=== PATIENT | female | born 1960 | race Two or more races ===

== ENCOUNTER 2018-07-10 12:16 | Inpatient (IN) | payer OTHER ==
[2018-07-10 12:58] VITALS: BMI 26.6
--- NOTE | 2018-07-10 17:54 | HP ---
CIWA Score Nausea/Vomitin Muscle Tremors: 4-Moderate,w/Arms Extend Anxiety: 4-Mod. Anxious/Guarded Agitation: 4-Moderately Restless Paroxysmal Sweats: 3 Orientation: 1-Uncertain about Date Tacttile Disturbances: 2-Mild Itch/Numbness/Burn (both and and feet) Auditory Disturbances: 0-None Visual Disturbances: 0-None Headache: 0-None Present CIWA-Ar Total Score: 21 - Admission Criteria OASAS Guidelines: Admission for Medically Managed Detox: Requires at least one of the followin. CIWA greater than 12 2. Seizures within the past 24 hours 3. Delirium tremens within the past 24 hours 4. Hallucinations within the past 24 hours 5. Acute intervention needed for co occurring medical disorder 6. Acute intervention needed for co occurring psychiatric disorder 7. Severe withdrawal that cannot be handled at a lower level of care (continued vomiting, continued diarrhea, abnormal vital signs) requiring intravenous medication and/or fluids 8. Patient presents the following: CIWA greater than 12 Admission Criteria Met: Admission criteria met Admission ROS S - [facility] Chief Complaint: " I am withdrawing really bad" Allergies/Adverse Reactions: Allergies Allergy/AdvReac Type Severity Reaction Status Date / Time No Known Allergies Allergy Verified 07/10/18 16:33 History of Present Illness: 57 yo female with hx of alcohol dependence is here is here seeking detox. Reports prior detox treatment but does not recall the last time or facility in which she completed detox. Patient seen at [facility] yesterday d/t severe alcohol intoxication. As per patient reports that her drinking has gotten worse , wakes up from her sleep to drink d/t tremors and is currently drinking one liter of liquor per day. PMHX: Seizure d/o, HTN, GERD, bipolar, anxiety and depression. Last seizure Summer 2017. Longest period of sobriety one year. Reports hx of frequent alcohol related blackout, last episode yesterday. Exam Limitations: No Limitations - Ebola screening Have you traveled outside of the country in the last 21 days: No Have you had contact with anyone from an Ebola affected area: No Have you been sick,other than usual withdrawal symptoms: No - Review of Systems Constitutional: Chills, Diaphoresis, Loss of Appetite, Changes in sleep, Weakness EENT: reports: Dental Problems (poor dentition) Respiratory: reports: No Symptoms reported Cardiac: reports: Palpitations GI: reports: Nausea, Poor Appetite, Poor Fluid Intake : reports: Other (ocassional incontinence) Musculoskeletal: reports: Back Pain (left sciatica) Integumentary: reports: No Symptoms Reported Neuro: reports: Numbness (both hands), Weakness Endocrine: reports: Increased Thirst Hematology: reports: No Symptoms Reported Psychiatric: reports: Orientated x3, Anxious, Depressed Other Systems: Reviewed and Negative Patient History - Patient Medical History Hx Anemia: No Hx Asthma: No Hx Chronic Obstructive Pulmonary Disease (COPD): No Hx Cancer: No Hx Cardiac Disorders: No Hx Congestive Heart Failure: No Hx Hypertension: No Hx Hypercholesterolemia: No Hx Pacemaker: No HX Cerebrovascular Accident: No Hx Seizures: Yes (11/2017) Hx Dementia: No Hx Diabetes: No Hx Gastrointestinal Disorders: No Hx Liver Disease: No Hx Genitourinary Disorders: No Hx Sexually Transmitted Disorders: No Hx Renal Disease (ESRD): No Hx Thyroid Disease: No Hx Human Immunodeficiency Virus (HIV): No Hx Hepatitis C: No Hx Depression: Yes Hx Suicide Attempt: No Hx Bipolar Disorder: Yes (and borderline) Hx Schizophrenia: No - Patient Surgical History Past Surgical History: Yes Hx Neurologic Surgery: No Hx Cataract Extraction: No Hx Cardiac Surgery: No Hx Lung Surgery: No Hx Breast Surgery: No Hx Breast Biopsy: No Hx Abdominal Surgery: No Hx Appendectomy: No Hx Cholecystectomy: No Hx Genitourinary Surgery: No Hx Section: Yes (2007) Hx Orthopedic Surgery: Yes Anesthesia Reaction: No - PPD History Documented Results: Negative w/o proof Date: 02/04/16 Results: 0mm PPD to be Administered?: Yes - Reproductive History Patient is a Female of Child Bearing Age (11 -55 yrs old): No Last Menstrual Period: 10/02/07 Patient : No - Smoking Cessation Smoking history: Never smoked Have you smoked in the past 12 months: No Aproximately how many cigarettes per day: 0 Cigars Per Day: 0 Hx Chewing Tobacco Use: No Initiated information on smoking cessation: No 'Breaking Loose' booklet given: 07/10/18 - Substance & Tx. History Hx Alcohol Use: Yes Hx Substance Use: Yes Substance Use Type: Alcohol Hx Substance Use Treatment: Yes (Patient does not recall ) - Substances Abused Alcohol Route: Oral Frequency: Daily Amount used: 1 LITER VODKA Age of first use: 6 Date of Last Use: 07/08/18 Family Disease History - Family Disease History Family Disease History: Diabetes: Father (HTN,HEART DISEASE), Brother, Sister, Heart Disease: Father, Mother (HTN) Admission Physical Exam [facility] - Vital Signs Vital Signs: Vital Signs - 24 hr 07/10/18 12:54 Temperature 96.2 F L Pulse Rate 130 H Respiratory 18 Rate Blood Pressure 141/96 - Physical General Appearance: Yes: Disheveled, Severe Distress, Tremorous, Sweating, Anxious HEENTM: Yes: EOMI, Hearing grossly Normal, Normal ENT Inspection, Normocephalic , Normal Voice, [place], Other (poor dentition) Respiratory: Yes: Chest Non-Tender, Lungs Clear, Normal Breath Sounds, No Respiratory Distress, No Accessory Muscle Use Neck: Yes: Within Normal Limits Breast: Yes: Breast Exam Deferred Cardiology: Yes: Regular Rhythm, Tachycardia Abdominal: Yes: Normal Bowel Sounds, Non Tender, Flat, Soft Genitourinary: Yes: Within Normal Limits Back: Yes: Normal Inspection Musculoskeletal: Yes: full range of Motion, Gait Steady, Pelvis Stable, Back pain, Other (scoliosis) Extremities: Yes: Normal Capillary Refill, Normal Inspection, Normal Range of Motion, Non-Tender, Other (palmar erythema) 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 NML intact, Fully Oriented, Alert, Motor Strength 5/5, Depressed Affect Integumentary: Yes: Normal Color, Warm, Diaphoresis Lymphatic: Yes: Within Normal Limits - Diagnostic (1) Alcohol dependence with uncomplicated withdrawal Current Visit: Yes Status: Acute (2) Chronic back pain Current Visit: Yes Status: Chronic (3) Essential hypertension Current Visit: Yes Status: Chronic (4) Gastroesophageal reflux disease Current Visit: Yes Status: Chronic (5) Obesity Current Visit: Yes Status: Chronic (6) Seizure disorder Current Visit: Yes Status: Chronic Cleared for Admission [facility] - Detox or Rehab [facility] Level of Care: Medically Managed Detox Regimen/Protocol: Librium S Breath Alcohol Content Breath Alcohol Content: 0 Urine Pregancy Test - Result Urine Test Results: Negative- NO Line Present Urine Drug Screen - Results Drug Screen Negative: No Urine Drug Screen Results: BZO-Benzodiazepines Inpatient Rehab Admission - Rehab Decision to Admit Inpatient rehab admission?: No
[2018-07-10] MEDS ORDERED: MAG HYDROX/AL HYDROX/SIMETH 30 ML UNIT-DOSE CUP PO PRN (18:00)
[2018-07-10] MEDS ORDERED: MAGNESIUM HYDROX 2400MG/30ML ORAL SUSPENSION 30 ML CUP PO PRN (18:00)
[2018-07-10] MEDS ORDERED: guaiFENesin/D-METHORPHAN HB 10 ML UNIT-DOSE CUPS PO PRN (18:00)
[2018-07-10] MEDS ORDERED: MAGNESIUM CITRATE 300 ML BOTTLE PO PRN (18:00)
[2018-07-10] MEDS ORDERED: P-EPHED 60MG/TRIPROLIDI 2.5MG TABLET PO PRN (18:00)
[2018-07-10] MEDS ORDERED: ACETAMINOPHEN 325 MG TABLET (FP) PO PRN (18:00)
[2018-07-10] MEDS ORDERED: LOPERAMIDE HCL 2 MG CAPSULE PO PRN (18:00)
[2018-07-10] MEDS ORDERED: MENTHOL/PHENOL 1 EACH UD MM PRN (18:00)
[2018-07-10] MEDS ORDERED: chlordiazePOXIDE HCL 25 MG CAPSULE PO ONE (19:00)
[2018-07-10] MEDS ORDERED: MELATONIN 5 MG TABLETS PO PRN (22:00)
[2018-07-10] MEDS: BACLOFEN 10 MG TABLET (FP) PO SCH (22:46)
[2018-07-10] MEDS: levETIRAcetam 500 MG TABLET (FP) PO SCH (22:46)
[2018-07-10] MEDS: THIAMINE HCL 100 MG TABLET (FP) PO SCH (22:46)
[2018-07-10] MEDS: METOPROLOL TARTRATE 50 MG TABLET (FP) PO SCH (22:46)
[2018-07-10] MEDS: chlordiazePOXIDE HCL 25 MG CAPSULE PO SCH (22:47)
[2018-07-10 23:09] LABS: URINE APPEARANCE SLCLOUDY; URINE BILIRUBIN NEGATIVE (<2.0 mg/dL); URINE COLOR LTYELLOW; URINE GLUCOSE (UA) 1+ (NEGATIVE); URINE KETONE NEGATIVE (NEGATIVE); URINE LEUK ESTERASE NEGATIVE (NEGATIVE); URINE NITRITE NEGATIVE (NEGATIVE); URINE PROTEIN NEGATIVE (NEGATIVE); URINE UROBILINOGEN NEGATIVE mg/dL (0.2-1.0)
[2018-07-11] MEDS: chlordiazePOXIDE HCL 25 MG CAPSULE PO SCH ×4 (06:23→22:55)
[2018-07-11] MEDS: IBUPROFEN 400 MG TABLET (FP) PO PRN ×2 (06:25→22:56)
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
[2018-07-11] MEDS: levETIRAcetam 500 MG TABLET (FP) PO SCH ×2 (11:05→22:54)
[2018-07-11] MEDS: PRENATAL VITAMINS W/ FOLIC ACID TABLET (FP) PO SCH (11:05)
[2018-07-11] MEDS: OLANZapine 5 MG TABLET PO SCH ×2 (11:05→22:53)
[2018-07-11] MEDS: METOPROLOL TARTRATE 50 MG TABLET (FP) PO SCH ×3 (11:05→23:09)
[2018-07-11] MEDS: BACLOFEN 10 MG TABLET (FP) PO SCH ×2 (11:05→22:54)
--- NOTE | 2018-07-11 13:46 | PN ---
S CIWA - CIWA Score Nausea/Vomitin-No Nausea/No Vomiting Muscle Tremors: 4-Moderate,w/Arms Extend Anxiety: 3 Agitation: 2 Paroxysmal Sweats: No Perspiration Orientation: 0-Oriented Tacttile Disturbances: 2-Mild Itch/Numbness/Burn Auditory Disturbances: 1-Very Mild Visual Disturbances: 2-Mild Sensitivity Headache: 0-None Present CIWA-Ar Total Score: 14 B[facility] Progress Note (SOAP) Subjective: Body Aches, Tremors, Anxious. Objective: PATIENT A & O X 3, OBSERVED AMBULATING ON UNIT. IN NO ACUTE DISTRESS. 07/11/18 13:46 Vital Signs Temperature 97.3 F L 07/11/18 06:27 Pulse Rate 87 07/11/18 06:27 Respiratory Rate 18 07/11/18 06:27 Blood Pressure 117/80 07/11/18 06:27 O2 Sat by Pulse Oximetry (%) Laboratory Tests 07/10/18 22:00 Urine Color Ltyellow Urine Appearance Slcloudy Urine pH 5.0 Ur Specific [place] 1.017 Urine Protein Negative Urine Glucose (UA) 1+ H Urine Ketones Negative Urine Blood Negative Urine Nitrite Negative Urine Bilirubin Negative Urine Urobilinogen Negative Ur Leukocyte Esterase Negative UA RESULTS NOTED. OTHER ADMISSION LAB RESULTS PENDING. Assessment: 07/11/18 13:47 WITHDRAWAL SYMPTOMS, Plan: CONTINUE DETOX. INCREASE DAILY PO FLUID INTAKE. PRN BACLOFEN PO FOR BODY ACHES / MUSCLE SPASMS.
--- NOTE | 2018-07-11 16:47 | EKG ---
Test Reason : Blood Pressure : / mmHG Vent. Rate : 112 BPM Atrial Rate : 112 BPM P-R Int : 130 ms QRS Dur : 066 ms QT Int : 318 ms P-R-T Axes : -03 002 021 degrees QTc Int : 434 ms SINUS TACHYCARDIA OTHERWISE NORMAL ECG WHEN COMPARED WITH ECG OF 14-FEB-2016 10:26, NO SIGNIFICANT CHANGE WAS FOUND Confirmed by ONI BROWN MD ([id number]) on 07/11/2018 4:47:03 PM Referred By: Confirmed By:ONI BROWN MD
[2018-07-11] MEDS: THIAMINE HCL 100 MG TABLET (FP) PO SCH (22:52)
[2018-07-11] MEDS ORDERED: ASPIRIN 81 MG CHEWABLE TABLETS PO ONE (23:14)
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
[2018-07-12] MEDS: chlordiazePOXIDE HCL 25 MG CAPSULE PO SCH ×3 (06:17→16:50)
[2018-07-12 10:12] LABS: HEMOGLOBIN 12.9 GM/dL (10.7-15.3); MCH 29.4 pg (25.7-33.7); MEAN CELL VOLUME 86.4 fl (80-96); PLATELET COUNT 268 K/MM3 (134-434); RDW 15.8 % (11.6-15.6); WHITE BLOOD COUNT 5.6 K/mm3 (4.0-10.0)
[2018-07-12] MEDS: levETIRAcetam 500 MG TABLET (FP) PO SCH ×2 (10:25→22:33)
[2018-07-12] MEDS: PRENATAL VITAMINS W/ FOLIC ACID TABLET (FP) PO SCH (10:25)
[2018-07-12] MEDS: METOPROLOL TARTRATE 50 MG TABLET (FP) PO SCH ×2 (10:25→22:33)
[2018-07-12] MEDS: OLANZapine 5 MG TABLET PO SCH ×2 (10:26→22:33)
[2018-07-12] MEDS: BACLOFEN 10 MG TABLET (FP) PO SCH ×2 (10:26→22:33)
[2018-07-12 10:53] LABS: ALBUMIN 3.2 g/dl (3.4-5.0); ALK PHOS 151 U/L (45-117); ANION GAP 8 MMOL/L (8-16); BILIRUBIN,TOTAL 0.2 mg/dL (0.2-1); BLOOD UREA NITROGEN 15 mg/dL (7-18); CHLORIDE 108 mmol/L (98-107); CO2 23 mmol/L (21-32); CREATININE 0.7 mg/dL (0.55-1.3); GLUCOSE,RANDOM 259 mg/dL (74-106); POTASSIUM 3.8 mmol/L (3.5-5.1); SGOT/AST 22 U/L (15-37); SGPT/ALT 28 U/L (13-61); SODIUM 139 mmol/L (136-145); TOT PROT 6.4 g/dl (6.4-8.2)
--- NOTE | 2018-07-12 13:28 | EKG ---
Test Reason : Blood Pressure : / mmHG Vent. Rate : 094 BPM Atrial Rate : 094 BPM P-R Int : 138 ms QRS Dur : 070 ms QT Int : 348 ms P-R-T Axes : 055 010 026 degrees QTc Int : 435 ms NORMAL SINUS RHYTHM NORMAL ECG WHEN COMPARED WITH ECG OF 10-JUL-2018 18:30, NO SIGNIFICANT CHANGE WAS FOUND Confirmed by MARCO MENDEZ MD ([id number]) on 07/12/2018 1:28:19 PM Referred By: Confirmed By:MARCO MENDEZ MD
[2018-07-12] MEDS ORDERED: ALBUTEROL SO4 2.5/IPRATROPIUM 0.5 INH SOL 3 ML VIAL.NEB. NEB PRN (15:04)
[2018-07-12] MEDS: chlordiazePOXIDE HCL 25 MG CAPSULE PO PRN (15:07)
[2018-07-12] MEDS: hydrOXYzine PAMOATE 50 MG CAPSULE (FP) PO PRN (15:07)
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
[2018-07-12] MEDS: THIAMINE HCL 100 MG TABLET (FP) PO SCH (22:33)
[2018-07-12] MEDS: chlordiazePOXIDE 5 MG CAPSULE PO SCH (22:33)
[2018-07-13] MEDS: IBUPROFEN 400 MG TABLET (FP) PO PRN ×3 (04:09→22:46)
[2018-07-13] MEDS: chlordiazePOXIDE 5 MG CAPSULE PO SCH ×3 (05:11→17:18)
--- NOTE | 2018-07-13 07:35 | PN ---
[facility] Progress Note Note: INFORMED OF ABNORMAL BGM 403 MG/DL . PER CLIENT SHE HAS NEVER BEEN DIAGNOSED WITH DIABETES DENIES SELF HX BUT DOES REPORTS STRONG FAMILY HX OF IT. STATES HER FATHER, SISTERAND HER BROTHER ARE DIAGNOSED WITH DM. C/O POLYDIPSIA, POLYURIA AWAKE/ALERT NAD X3 REPEAT BGM 328MG/DL HGBA1C 9.1 Vital Signs Temperature 99 F 07/12/18 22:40 Pulse Rate 99 H 07/12/18 22:40 Respiratory Rate 16 07/13/18 03:30 Blood Pressure 142/79 07/12/18 22:40 O2 Sat by Pulse Oximetry (%) Laboratory Tests 07/10/18 07/12/18 07/12/18 22:00 07:00 07:00 WBC 5.6 RBC 4.40 Hgb 12.9 Hct 38.0 MCV 86.4 MCH 29.4 MCHC 34.0 RDW 15.8 H Plt Count 268 MPV 9.0 Sodium 139 Potassium 3.8 Chloride 108 H Carbon Dioxide 23 Anion Gap 8 BUN 15 Creatinine 0.7 Creat Clearance w eGFR > 60 POC Glucometer Random Glucose 259 H Hemoglobin A1c % Calcium 9.0 Total Bilirubin 0.2 AST 22 ALT 28 Alkaline Phosphatase 151 H Total Protein 6.4 Albumin 3.2 L Urine Color Ltyellow Urine Appearance Slcloudy Urine pH 5.0 Ur Specific [place] 1.017 Urine Protein Negative Urine Glucose (UA) 1+ H Urine Ketones Negative Urine Blood Negative Urine Nitrite Negative Urine Bilirubin Negative Urine Urobilinogen Negative Ur Leukocyte Esterase Negative RPR Titer 07/12/18 07/13/18 07/13/18 07:00 06:00 06:31 WBC RBC Hgb Hct MCV MCH MCHC RDW Plt Count MPV Sodium Potassium Chloride Carbon Dioxide Anion Gap BUN Creatinine Creat Clearance w eGFR POC Glucometer 403 Random Glucose Hemoglobin A1c % 9.1 H Calcium Total Bilirubin AST ALT Alkaline Phosphatase Total Protein Albumin Urine Color Urine Appearance Urine pH Ur Specific [place] Urine Protein Urine Glucose (UA) Urine Ketones Urine Blood Urine Nitrite Urine Bilirubin Urine Urobilinogen Ur Leukocyte Esterase RPR Titer Nonreactive 07/13/18 07:23 WBC RBC Hgb Hct MCV MCH MCHC RDW Plt Count MPV Sodium Potassium Chloride Carbon Dioxide Anion Gap BUN Creatinine Creat Clearance w eGFR POC Glucometer 328 Random Glucose Hemoglobin A1c % Calcium Total Bilirubin AST ALT Alkaline Phosphatase Total Protein Albumin Urine Color Urine Appearance Urine pH Ur Specific [place] Urine Protein Urine Glucose (UA) Urine Ketones Urine Blood Urine Nitrite Urine Bilirubin Urine Urobilinogen Ur Leukocyte Esterase RPR Titer LABS APPRECIATED A- NEW ONSET DM, TYPE 2 DM P- BGM AC/HS START METFORMIN 500 MG BID. SIDE EFFECTS AND S/SX OF HYPOGLYCEMIA DISCUSSED WITH CLIENT VERBALIZES UNDERSTANDING. CONT TO MONITOR CLINICALLY DIETARY CONSULT
[2018-07-13] MEDS: metFORMIN HCL 500 MG TABLET (FP) PO SCH ×2 (07:50→17:18)
[2018-07-13] MEDS: PRENATAL VITAMINS W/ FOLIC ACID TABLET (FP) PO SCH (09:44)
[2018-07-13] MEDS: BACLOFEN 10 MG TABLET (FP) PO SCH ×2 (09:44→22:45)
[2018-07-13] MEDS: levETIRAcetam 500 MG TABLET (FP) PO SCH ×2 (09:44→22:45)
[2018-07-13] MEDS: OLANZapine 5 MG TABLET PO SCH ×2 (09:44→22:45)
[2018-07-13] MEDS: METOPROLOL TARTRATE 50 MG TABLET (FP) PO SCH ×2 (09:44→22:45)
[2018-07-13] MEDS ORDERED: LIDOCAINE VISCOUS 2% ORAL/TOP 20 ML UNIT-DOSE CUP MM PRN (11:24)
[2018-07-13] MEDS: hydrOXYzine PAMOATE 50 MG CAPSULE (FP) PO PRN ×2 (11:59→17:18)
[2018-07-13] MEDS: chlordiazePOXIDE HCL 25 MG CAPSULE PO PRN (11:59)
--- NOTE | 2018-07-13 16:19 | PN ---
[facility] Progress Note (SOAP) Subjective: Anxious, Agitated, Body Aches. Objective: PATIENT A & O X 3, OBSERVED AMBULATING ON UNIT. IN NO ACUTE DISTRESS. PATIENT REPORTS THAT SHE "CRACKED A TOOTH" IN HER MOUTH AND IT HURTS." HOWEVER, WHEN ASKED, PATIENT WOULD NOT FULLY OPEN MOUTH TO ALLOW [employer] TO VIEW INSIDE OF MOUTH. 07/13/18 16:14 Vital Signs Temperature 99.1 F 07/13/18 13:40 Pulse Rate 92 H 07/13/18 13:40 Respiratory Rate 20 07/13/18 13:40 Blood Pressure 134/90 07/13/18 13:40 O2 Sat by Pulse Oximetry (%) Laboratory Tests 07/10/18 07/12/18 07/12/18 22:00 07:00 07:00 WBC 5.6 RBC 4.40 Hgb 12.9 Hct 38.0 MCV 86.4 MCH 29.4 MCHC 34.0 RDW 15.8 H Plt Count 268 MPV 9.0 Sodium 139 Potassium 3.8 Chloride 108 H Carbon Dioxide 23 Anion Gap 8 BUN 15 Creatinine 0.7 Creat Clearance w eGFR > 60 POC Glucometer Random Glucose 259 H Hemoglobin A1c % Calcium 9.0 Total Bilirubin 0.2 AST 22 ALT 28 Alkaline Phosphatase 151 H Total Protein 6.4 Albumin 3.2 L Urine Color Ltyellow Urine Appearance Slcloudy Urine pH 5.0 Ur Specific [place] 1.017 Urine Protein Negative Urine Glucose (UA) 1+ H Urine Ketones Negative Urine Blood Negative Urine Nitrite Negative Urine Bilirubin Negative Urine Urobilinogen Negative Ur Leukocyte Esterase Negative RPR Titer 07/12/18 07/13/18 07/13/18 07:00 06:00 06:31 WBC RBC Hgb Hct MCV MCH MCHC RDW Plt Count MPV Sodium Potassium Chloride Carbon Dioxide Anion Gap BUN Creatinine Creat Clearance w eGFR POC Glucometer 403 Random Glucose Hemoglobin A1c % 9.1 H Calcium Total Bilirubin AST ALT Alkaline Phosphatase Total Protein Albumin Urine Color Urine Appearance Urine pH Ur Specific [place] Urine Protein Urine Glucose (UA) Urine Ketones Urine Blood Urine Nitrite Urine Bilirubin Urine Urobilinogen Ur Leukocyte Esterase RPR Titer Nonreactive 07/13/18 07:23 WBC RBC Hgb Hct MCV MCH MCHC RDW Plt Count MPV Sodium Potassium Chloride Carbon Dioxide Anion Gap BUN Creatinine Creat Clearance w eGFR POC Glucometer 328 Random Glucose Hemoglobin A1c % Calcium Total Bilirubin AST ALT Alkaline Phosphatase Total Protein Albumin Urine Color Urine Appearance Urine pH Ur Specific [place] Urine Protein Urine Glucose (UA) Urine Ketones Urine Blood Urine Nitrite Urine Bilirubin Urine Urobilinogen Ur Leukocyte Esterase RPR Titer LABS NOTED. RESULTS OF BGM AND HGB A1C NOTED. 07/13/18 16:20 Assessment: 07/13/18 16:15 WITHDRAWAL SYMPTOMS. HYPERGLYCEMIA. Plan: CONTINUE DETOX. PATIENT MADE AWARE OF ELEVATED GLUCOSE LEVELS NOTED WHILE ADMITTED FOR DETOX. PATIENT DENIES ANY KNOWN MEDICAL HISTORY OF DM. PATIENT REPROTS TAHT SHE DOES NOT CURRENTLY HAVE A RADIATION ONCOLOGY THERAPIST. PATIENT ADVISED TO GO TO [facility] NEAR WHERE SHE LIVES (WHEN ASKED, PATIENT DECLINED TO ALLOW MOT[employer] TO KNOW GENERAL AREA IN WHICH SHE LIVES) SOON POSSIBLE AFTER DISCHARGE FROM DETOX UNIT FOR FURTHER EVALUATION. PATIENT VERBALIZED UNDERSTANDING OF RECOMMENDATION. COPIES OF ALL LABS DRAWN WHILE ADMITTED FOR DETOX WILL BE GIVEN TO PATIENT AT TIME OF DISCHARGE FROM DETOX UNIT. PATIENT SCHEDULED FOR D/C TOMORROW.
--- NOTE | 2018-07-13 20:47 | PN ---
[facility] Progress Note Note: Psychiatry Attending's note (follow-up) : Met with patient. With counselor. Ms Martinez is found in her room. She complains of feeling hurt by the rejection of her family. It appears that her calls to her mother has not been answered. Patient states that she also called her daughter. No response. Ms Martinez admits to feeling angry at her mother for keeping her distance. " She has never been a good mother. She is jealous of people. 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 Preoccupied with ideation of being persecuted by her mother. " She never likes me ". Patient remains calm and cooperative during this interview. Alert and fully oriented. Keeps fair personal hygiene. Denies suicidal or homicidal ideation, intent or plan. " My mother upsets me but I don't want to hurt her or anyone. Instead, I am afraid of that woman." Patient, although odd and bizarre, remains goal-directed. She wants to go to [facility] for rehabilitation. Irritable but manageable. Adherent to her medications. Noted report of hyperglycemia. Will discontinue olanzapine. Medical follow-up ( see medical notes). Recommend follow-up by covering psychiatrist on 07/14/18 for discussion of alternate antipsychotic medication.
[2018-07-13] MEDS: chlordiazePOXIDE HCL 10 MG CAPSULE PO SCH (22:45)
[2018-07-13] MEDS: THIAMINE HCL 100 MG TABLET (FP) PO SCH (22:45)
[2018-07-14] MEDS: metFORMIN HCL 500 MG TABLET (FP) PO SCH (06:39)
[2018-07-14] MEDS: chlordiazePOXIDE HCL 10 MG CAPSULE PO SCH ×2 (06:39→10:20)
[2018-07-14 09:34] VITALS: BP 139/94; PULSE 91; TEMP 97.8
[2018-07-14] MEDS: levETIRAcetam 500 MG TABLET (FP) PO SCH (10:20)
[2018-07-14] MEDS: METOPROLOL TARTRATE 50 MG TABLET (FP) PO SCH (10:20)
[2018-07-14] MEDS: PRENATAL VITAMINS W/ FOLIC ACID TABLET (FP) PO SCH (10:20)
[2018-07-14] MEDS: BACLOFEN 10 MG TABLET (FP) PO SCH (10:20)
--- NOTE | 2018-07-14 10:42 | DS ---
[facility] Detox Discharge Summary Admission Date: 07/10/18 Discharge Date: 07/14/18 - History Present History: Alcohol Dependence Additional Comments: 57 years old female admitted on 07/10/18 for alcohol withdrawal stabilization completed alcohol detox regimen aftercare [facility] Physical Exam Results Vital Signs: Vital Signs Temperature 97.8 F 07/14/18 09:34 Pulse Rate 91 H 07/14/18 09:34 Respiratory Rate 18 07/14/18 09:34 Blood Pressure 139/94 07/14/18 09:34 O2 Sat by Pulse Oximetry (%) Pertinent Admission Physical Exam Findings: alcohol withdrawal sx Laboratory Last Values WBC 5.6 K/mm3 (4.0-10.0) 07/12/18 07:00 RBC 4.40 M/mm3 (3.60-5.2) 07/12/18 07:00 Hgb 12.9 GM/dL (10.7-15.3) 07/12/18 07:00 Hct 38.0 % (32.4-45.2) 07/12/18 07:00 MCV 86.4 fl (80-96) 07/12/18 07:00 MCH 29.4 pg (25.7-33.7) 07/12/18 07:00 MCHC 34.0 g/dl (32.0-36.0) 07/12/18 07:00 RDW 15.8 % (11.6-15.6) H 07/12/18 07:00 Plt Count 268 K/MM3 (134-434) 07/12/18 07:00 MPV 9.0 fl (7.5-11.1) 07/12/18 07:00 Sodium 139 mmol/L (136-145) 07/12/18 07:00 Potassium 3.8 mmol/L (3.5-5.1) 07/12/18 07:00 Chloride 108 mmol/L (98-107) H 07/12/18 07:00 Carbon Dioxide 23 mmol/L (21-32) 07/12/18 07:00 Anion Gap 8 MMOL/L (8-16) 07/12/18 07:00 BUN 15 mg/dL (7-18) 07/12/18 07:00 Creatinine 0.7 mg/dL (0.55-1.3) 07/12/18 07:00 Creat Clearance w eGFR > 60 (>60) 07/12/18 07:00 POC Glucometer 274 UNITS (80-120) 07/14/18 06:33 Random Glucose 259 mg/dL (74-106) H 07/12/18 07:00 Hemoglobin A1c % 9.1 % (4.2-6.3) H 07/13/18 06:00 Calcium 9.0 mg/dL (8.5-10.1) 07/12/18 07:00 Total Bilirubin 0.2 mg/dL (0.2-1) 07/12/18 07:00 AST 22 U/L (15-37) 07/12/18 07:00 ALT 28 U/L (13-61) 07/12/18 07:00 Alkaline Phosphatase 151 U/L (45-117) H 07/12/18 07:00 Total Protein 6.4 g/dl (6.4-8.2) 07/12/18 07:00 Albumin 3.2 g/dl (3.4-5.0) L 07/12/18 07:00 Urine Color Ltyellow 07/10/18 22:00 Urine Appearance Slcloudy 07/10/18 22:00 Urine pH 5.0 (5.0-8.0) 07/10/18 22:00 Ur Specific [place] 1.017 (1.010-1.035) 07/10/18 22:00 Urine Protein Negative (NEGATIVE) 07/10/18 22:00 Urine Glucose (UA) 1+ (NEGATIVE) H 07/10/18 22:00 Urine Ketones Negative (NEGATIVE) 07/10/18 22:00 Urine Blood Negative (NEGATIVE) 07/10/18 22:00 Urine Nitrite Negative (NEGATIVE) 07/10/18 22:00 Urine Bilirubin Negative (<2.0 mg/dL) 07/10/18 22:00 Urine Urobilinogen Negative mg/dL (0.2-1.0) 07/10/18 22:00 Ur Leukocyte Esterase Negative (NEGATIVE) 07/10/18 22:00 RPR Titer Nonreactive (NONREACTIVE) 07/12/18 07:00 lab noted - Treatment Hospital Course: Detox Protocol Followed, Detoxed Safely, Responded well, Discharged Condition Good, Rehab Referral Accepted Patient has Accepted a Rehab Referral to: [facility] - Medication Discharge Medications: Ambulatory Orders Amitriptyline HCl [Elavil -] 100 mg PO BID 06/11/12 Metoprolol Tartrate 50 mg PO BID #60 tablet 02/18/16 Clonazepam [Klonopin] 2 mg PO DAILY 07/10/18 Metoprolol Tartrate [Lopressor -] 50 mg PO BID #30 tablet 07/14/18 levETIRAcetam [Keppra -] 500 mg PO BID #0 tablet 07/14/18 levETIRAcetam [Keppra -] 500 mg PO BID #60 tablet 07/14/18 - Diagnosis (1) Alcohol dependence with uncomplicated withdrawal Current Visit: Yes Status: Acute (2) New onset type 2 diabetes mellitus Current Visit: Yes Status: Chronic (3) Essential hypertension Current Visit: Yes Status: Chronic (4) Gastroesophageal reflux disease Current Visit: Yes Status: Chronic (5) Seizure disorder Current Visit: Yes Status: Chronic (6) Drug-induced mood disorder Current Visit: Yes Status: Suspected - AMA Did Patient Leave Against Medical Advice: No
== END 2018-07-14 12:29 | disposition other institution (70) | DRG 775 ==
LOC: YASAS 12:16 → Y3N 17:37
PROVIDERS: ADMIT Surgery; ATTEND Surgery
PROC: HZ2ZZZZ Detoxification Services for Substance Abuse Treatment (ICD-10-PCS; principal; 2018-07-10)
DX: F10.230 Alcohol dependence with withdrawal, uncomplicated (principal); F19.24 Other psychoactive substance dependence with psychoactive substance-induced mood disorder; F25.9 Schizoaffective disorder, unspecified; F22 Delusional disorders; I10 Essential (primary) hypertension; K21.9 Gastro-esophageal reflux disease without esophagitis; E11.9 Type 2 diabetes mellitus without complications; Z79.84 Long term (current) use of oral hypoglycemic drugs; E66.9 Obesity, unspecified; Z68.26 Body mass index [BMI] 26.0-26.9, adult; M54.9 Dorsalgia, unspecified; G89.29 Other chronic pain; Z86.69 Personal history of other diseases of the nervous system and sense organs; Z86.59 Personal history of other mental and behavioral disorders
CPT/HCPCS: 36415; 80053; 81003; 82962; 83036; 85027; 86593; 93005; 93010; J0475

== ENCOUNTER 2018-07-14 11:15 | Inpatient (IN) | payer OTHER ==
--- NOTE | 2018-07-14 10:44 | HP ---
[facility] Re[facility] Assess/Revision - Admission History Admitted to Rehab from: [facility] Date of Admission to Rehab: 07/14/18 - Findings Detox History & Physical reviewed: Yes Concur with findings: Yes Comments/Additional Findings: transferred from detox to rehab admission as per protocol Inpatient Rehab Admission - Rehab Decision to Admit Inpatient rehab admission?: Yes - Initial Determination Are CD services needed?: Yes Free of communicable disease: Yes Not in need of hospitalization: Yes - Rehab Admission Criteria Previous failed treatment: Yes Poor recovery environment: Yes Comorbidities: Yes Lacks judgement: No Patient is meeting Inpatient Rehab admission criteria:: Yes
[~2018-07-14 11:15] MED LIST: ACETAMINOPHEN 325 MG TABLET (FP) PO PRN; IBUPROFEN 400 MG TABLET (FP) PO PRN; INSULIN SLIDING SCALE (NOVOLOG) 1 VIAL SQ PRN; LOPERAMIDE HCL 2 MG CAPSULE PO PRN; MAG HYDROX/AL HYDROX/SIMETH 30 ML UNIT-DOSE CUP PO PRN; MAGNESIUM CITRATE 300 ML BOTTLE PO PRN; MAGNESIUM HYDROX 2400MG/30ML ORAL SUSPENSION 30 ML CUP PO PRN; MENTHOL/PHENOL 1 EACH UD MM PRN; NICOTINE 14 MG/24 HOURS TOPICAL PATCH TD PRN; NICOTINE POLACRILEX 2 MG GUM BUC PRN; P-EPHED 60MG/TRIPROLIDI 2.5MG TABLET PO PRN; guaiFENesin/D-METHORPHAN HB 10 ML UNIT-DOSE CUPS PO PRN
[2018-07-14] MEDS: metFORMIN HCL 500 MG TABLET (FP) PO SCH (16:59)
[2018-07-14] MEDS ORDERED: THIAMINE HCL 100 MG TABLET (FP) PO SCH (22:00)
[2018-07-14] MEDS ORDERED: METOPROLOL TARTRATE 50 MG TABLET (FP) PO SCH (22:00)
[2018-07-14] MEDS ORDERED: MELATONIN 5 MG TABLETS PO PRN (22:00)
[2018-07-14] MEDS ORDERED: levETIRAcetam 500 MG TABLET (FP) PO SCH (22:00)
[2018-07-15] MEDS: metFORMIN HCL 500 MG TABLET (FP) PO SCH (06:46)
[2018-07-15 07:04] VITALS: BP 133/84; PULSE 83; TEMP 97.2
[2018-07-15] MEDS ORDERED: PRENATAL VITAMINS W/ FOLIC ACID TABLET (FP) PO SCH (10:00)
--- NOTE | 2018-07-15 10:51 | PN ---
[facility] Progress Note Note: PATIENT SEEN BY SWEATER DESIGNER FOR REQUEST TO SIGN OUT AMA. PATIENT COMPLETED DETOX 07/14 FOR BZO/ETOH DEPENDENCE AT [facility]. PATIENT STATES SHE DOES NOT HAVE A DRINKING PROBLEM AND ONLY DRANK ETOH WHEN SHE RAN OUT OF [place]. PATIENT STATES SHE WANTS TO RESUME [place] TREATMENT WITH DR. SUGGS AT [facility] MEDICATION HELPS HER NOT TO DRINK. PATIENT ENCOURAGED TO STAY IN REHAB AND EXPLAINED RISK FACTORS WITH SIGNING OUT AMA/KLONIPIN DEPENDENCE. PATIENT REFUSED TO STAY AND STATES SHE HAS HER OWN DOCTORS AND WILL FOLLOW UP WITH PCP AND PSYCHIATRY TO CONTINUE MEDICAL/PSYCHIATRIC CARE. PATIENT ALSO STATES SHE WILL ATTEND GROUP MEETINGS AT TO PREVENT RELAPSE. PATIENT CLINICALLY STABLE AT THIS TIME AND DENIES SI/HI. MEDICAL MEDICATION SENT TO PREFERRED PHARMACY. Vital Signs Temperature 97.2 F L 07/15/18 07:02 Pulse Rate 83 07/15/18 07:02 Respiratory Rate 18 07/15/18 07:02 Blood Pressure 133/84 07/15/18 07:02 O2 Sat by Pulse Oximetry (%)
[2018-07-15] MEDS ORDERED: GABAPENTIN 300 MG CAPSULE (FP) PO SCH (11:30)
== END 2018-07-15 11:20 | disposition home or self-care (01) | DRG 772 ==
LOC: YASAS 11:15 → Y3E 11:16
PROVIDERS: ADMIT Neuromusculoskeletal Medicine & OMM; ATTEND Neuromusculoskeletal Medicine & OMM
PROC: HZ42ZZZ Group Counseling for Substance Abuse Treatment, Cognitive-Behavioral (ICD-10-PCS; principal; 2018-07-14)
DX: F10.20 Alcohol dependence, uncomplicated (principal); I10 Essential (primary) hypertension; K21.9 Gastro-esophageal reflux disease without esophagitis; M54.5 Low back pain; G89.29 Other chronic pain; G40.909 Epilepsy, unspecified, not intractable, without status epilepticus; E66.9 Obesity, unspecified; Z68.26 Body mass index [BMI] 26.0-26.9, adult
CPT/HCPCS: 82962